=== PATIENT | female | born 1990 | race Hispanic/Latino ===

== ENCOUNTER 2016-12-14 18:04 | Emergency (ER) | payer OTHER ==
[~2016-12-14] VITALS: Ht 160 cm; Wt 92.9 kg
[~2016-12-14 18:04] MED LIST: ACET50TA PO; IBUP-1114 PO; PRENTAB9 PO
[2016-12-14 20:55] LABS: CONTROL LINE UCG INT CTR LINE PRESENT
[2016-12-14] MEDS ORDERED: MACR100C3 PO (21:20)
[2016-12-14] MEDS ORDERED: PYRI200T5 PO (21:20)
[2016-12-14] MEDS ORDERED: PHENAZOPYRIDINE 100 MG TAB PO ONE (21:30)
[2016-12-14] MEDS ORDERED: NITROFURANTOIN (MACROBID) 100 MG CAP PO ONE (21:30)
[2016-12-14 21:32] VITALS: BP 122/67
[2016-12-27] MEDS ORDERED: BENA25TA9 PO (09:09)
== END 2016-12-14 21:33 | disposition home or self-care (01) ==
LOC: M ED 21:04
DX: N39.0 Urinary tract infection, site not specified (principal)

== ENCOUNTER 2016-12-27 07:07 | Emergency (ER) | payer OTHER ==
[~2016-12-27] VITALS: Ht 160 cm; Wt 85.0 kg
[~2016-12-27 07:07] MED LIST changes: +MACR100C43 PO; +PYRI1TAB5 PO
[2016-12-27] MEDS ORDERED: HYDROCORTISONE 1% CREAM 30 GM TOP ONE (07:30)
[2016-12-27] MEDS ORDERED: ONDANSETRON 4MG/2ML VIAL (J2405) IV ONE (07:30)
[2016-12-27] MEDS ORDERED: diphenhydrAMINE INJ 50MG/ML VIAL (J1200) IV ONE (07:30)
[2016-12-27] MEDS ORDERED: methylPREDNISolone INJ 125 MG/2 ML VIAL (J2930) IV ONE (07:30)
[2016-12-27] MEDS ORDERED: BENA25TA10 PO (09:09)
[2016-12-27] MEDS ORDERED: PRED20TA PO (09:09)
[2016-12-27 09:16] VITALS: BP 125/66
== END 2016-12-27 09:20 | disposition home or self-care (01) ==
LOC: M ED 07:53
DX: R21 Rash and other nonspecific skin eruption (principal); T78.40XA Allergy, unspecified, initial encounter; X58.XXXA Exposure to other specified factors, initial encounter; Y92.830 Public park as the place of occurrence of the external cause; Y93.89 Activity, other specified; Y99.8 Other external cause status

== ENCOUNTER 2016-12-30 13:37 | Emergency (ER) | payer OTHER ==
[~2016-12-30] VITALS: Ht 160 cm; Wt 93.4 kg
[~2016-12-30 13:37] MED LIST changes: +BENA25TA10 PO; +PRED20TA PO
[2016-12-30] MEDS ORDERED: RANI15TA PO (15:10)
[2016-12-30] MEDS ORDERED: predniSONE 20 MG TAB PO ONE (15:15)
[2016-12-30 15:21] VITALS: BP 131/75
--- NOTE | 2017-01-01 07:16 | ECGEPIP ---
Stationary ECG Study [facility] - ED Test Date: 2016-12-30 Pat Name: PEDRO PABLO RAMÍREZ Department: Room: - Gender: F [employer] Technician: ct : 1990 Requested By: Twyla Baker Order Number: [id number] Reading MD: Twyla Baker Measurements Intervals Devers Rate: 68 P: 42 OR: 131 QRS: 26 QRSD: 97 T: 15 QT: 374 QTc: 398 Interpretive Statements SINUS RHYTHM LOW QRS VOLTAGE IN PRECORDIAL LEADS POSSIBLE RIGHT VENTRICULAR CONDUCTION DELAY NSTTW ABNORMALITY NO PRIOR FOR COMPARISON Electronically Signed On 01-01-2017 7:16:23 EDT by Twyla Baker
== END 2016-12-30 15:29 | disposition home or self-care (01) ==
LOC: M ED 13:37
DX: L50.0 Allergic urticaria (principal)

== ENCOUNTER → 2017-03-09 | Outpatient (CLI) | payer OTHER ==
[~2017-03-09] MED LIST changes: +RANI15TA PO; +ZOFR4TAB3 PO
[2017-03-09 17:50] LABS: ALBUMIN 3.6 GM/DL (3.2-5.2); ALBUMIN/GLOBULIN RATIO 0.95 (1.00-1.93); ALKALINE PHOSPHATASE 83 U/L (45-117); ALT/SGPT 27 U/L (12-78); ANION GAP 10 MEQ/L (8-16); AST/SGOT 20 U/L (15-37); BILIRUBIN,TOTAL 0.6 MG/DL (0.2-1.0); BLOOD UREA NITROGEN 12 MG/DL (7-18); CALCIUM LEVEL 8.8 MG/DL (8.5-10.1); CARBON DIOXIDE LEVEL 26 MEQ/L (21-32); CHLORIDE LEVEL 106 MEQ/L (98-107); CREATININE FOR GFR 0.76 MG/DL (0.55-1.02); GLOMERULAR FILTRATION RATE > 60.0 (>60); GLUCOSE, FASTING 85 MG/DL (70-105); POTASSIUM SERUM 4.4 MEQ/L (3.5-5.1); SODIUM LEVEL 142 MEQ/L (136-145); THYROXINE (T4) 8.5 UG/DL (4.5-12.0); TOTAL PROTEIN 7.4 GM/DL (6.4-8.2)
[2017-03-09 18:24] LABS: MEAN CORPUSCULAR HEMOGLOBIN 27.9 pg (27.0-33.0); MEAN CORPUSCULAR HGB CONC 32.5 g/dl (32.0-36.5); MEAN CORPUSCULAR VOLUME 85.8 fl (80.0-96.0); RED CELL DISTRIBUTION WIDTH 13.1 % (11.5-14.5); WHITE BLOOD COUNT 5.8 K/mm3 (4.0-10.0)
[2017-03-10 09:46] LABS: THYROID PEROXIDASE ANTIBODY 30.3 U/ML (<60.0)
[2017-03-16 00:06] LABS: IGE RECEPTOR ABY 1 4.1 (<10)
== END ==
LOC: M SMT 13:56
PROVIDERS: ATTEND Allergy & Immunology Allergy
DX: L50.1 Idiopathic urticaria (principal); L50.3 Dermatographic urticaria

== ENCOUNTER 2017-04-22 11:38 | Emergency (ER) | payer OTHER ==
[~2017-04-22 11:38] MED LIST changes: -ZOFR4TAB3 PO
[2017-04-22] MEDS ORDERED: MORPHINE 4 MG/ML 1ML SYRINGE IV PRN (13:15)
[2017-04-22] MEDS ORDERED: ONDANSETRON 4MG/2ML VIAL (J2405) IV ONE (13:15)
[2017-04-22 14:00] LABS: BASO % 0.6 % (0.0-1.0); EOS # 0.2 10^3/uL (0.0-0.50); EOS % 2.7 % (0.0-3.0); IMMATURE GRANULOCYTE % 0.3 % (0-0); LYMPH # 1.3 10^3/uL (1.5-6.5); LYMPH % 19.7 % (24.0-44.0); MEAN CORPUSCULAR HEMOGLOBIN 27.4 pg (27.0-33.0); MEAN CORPUSCULAR HGB CONC 31.8 g/dl (32.0-36.5); MONO # 0.5 10^3/uL (0.0-0.8); MONO % 7.5 % (0.0-5.0); NEUTROPHILS # 4.7 10^3/uL (1.8-7.7); NEUTROPHILS % 69.2 % (36.0-66.0); PLATELET COUNT, AUTOMATED 330 10^3/uL (150-450); RED CELL DISTRIBUTION WIDTH 13.8 % (11.5-14.5); WHITE BLOOD COUNT 6.8 10^3/uL (4.0-10.0)
[2017-04-22 14:22] LABS: ALBUMIN 3.8 GM/DL (3.2-5.2); ALBUMIN/GLOBULIN RATIO 0.84 (1.00-1.93); ALKALINE PHOSPHATASE 100 U/L (45-117); ALT/SGPT 33 U/L (12-78); AMYLASE 79 U/L (25-115); ANION GAP 2 MEQ/L (8-16); AST/SGOT 25 U/L (15-37); BILIRUBIN,DIRECT 0.2 MG/DL (0.0-0.2); BILIRUBIN,TOTAL 0.7 MG/DL (0.2-1.0); BLOOD UREA NITROGEN 10 MG/DL (7-18); CARBON DIOXIDE LEVEL 32 MEQ/L (21-32); CHLORIDE LEVEL 102 MEQ/L (98-107); CREATININE FOR GFR 0.75 MG/DL (0.55-1.02); GLOMERULAR FILTRATION RATE > 60.0 (>60); GLUCOSE, FASTING 91 MG/DL (70-105); POTASSIUM SERUM 4.1 MEQ/L (3.5-5.1); SODIUM LEVEL 136 MEQ/L (136-145); TOTAL PROTEIN 8.3 GM/DL (6.4-8.2)
[2017-04-22] MEDS ORDERED: ZOFR4TAB3 PO (15:32)
--- NOTE | 2017-04-22 15:33 | REP ---
RIGHT UPPER QUADRANT ULTRASOUND: Real-time sonographic evaluation of the right upper quadrant performed. Gallbladder demonstrates no evidence of intraluminal sludge or calculi, wall thickening, or pericholecystic fluid. There is no intrahepatic or extrahepatic biliary dilatation, common bile duct measuring 3 mm in diameter. Liver and pancreas demonstrate homogenous echotexture with no gross mass. Pancreatic tail is not well seen due to overlying bowel gas. Right kidney demonstrates no hydronephrosis or nephrolithiasis with no size at 10.2 cm in length. IMPRESSION: Negative right upper quadrant ultrasound. Signed by Emmanuel Chow MD 04/22/2017 05:37 P
[2017-04-22 16:10] VITALS: BP 118/70
== END 2017-04-22 16:12 | disposition home or self-care (01) ==
LOC: M ED 11:38
DX: N39.9 Disorder of urinary system, unspecified (principal); R10.11 Right upper quadrant pain; R11.0 Nausea; Z79.899 Other long term (current) drug therapy
CPT/HCPCS: 76705; 80048; 80076; 81001; 81025; 82150; 83690; 85025; 96374; 96375; 99283; J2405